=== PATIENT | male | born 1945 | race Caucasian/White ===

== ENCOUNTER → 2021-08-05 | Outpatient (CLI) | payer MEDICARE, OTHER ==
--- NOTE | 2021-08-05 16:56 | RAD ---
EXAMINATION: CT head without IV contrast. INDICATION:75 years, Male, syncope, collapse. COMPARISON: None TECHNIQUE: Spiral acquisition of contiguous images from the skull base to the vertex were obtained. S agittal and coronal 2D reformatted series were provided by the technologist. Soft tissue and bone win costa algorithms were reviewed. Exposure: One or more of the following individualized dose reduction techniques were utilized for thi s examination: 1. Automated exposure control 2. Adjustment of the mA and/or kV according to patient size 3. Use of iterative reconstruction technique. FINDINGS: Neither mass, midline shift, intracranial hemorrhage, acute/subacute ischemic changes, nor extraaxial fluid collections are seen. Severe brain parenchymal volume loss. Supratentorial periventricular whi te matter hypodensities, indeterminate but most likely representing chronic microangiopathic disease. Mucosal thickening in bilateral ethmoid air cells and left frontal sinus. Remaining paranasal sinuses , mastoid air cells, and middle ears are clear.The orbital contents appear within normal limits. IMPRESSION: 1. No acute intracranial abnormality. 2. 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 Electronically signed by: James Corona MD (08/05/2021 4:53 PM) [facility]
== END ==
LOC: EDSEX 16:27 → RAD 16:27
PROVIDERS: ATTEND Family Medicine
DX: R55 Syncope and collapse (principal); J34.89 Other specified disorders of nose and nasal sinuses
CPT/HCPCS: 70450